=== PATIENT | female | born 1990 | race Caucasian/White ===

== ENCOUNTER 2018-11-29 13:03 | Emergency (ER) | payer MEDICAID, MEDICARE ==
[~2018-11-29] VITALS: Ht 170.2 cm; Wt 88.9 kg
[2018-11-29 13:05] VITALS: BP 116/77
[2018-11-29] MEDS ORDERED: DEXAMETHASONE 4 MG TABLET PO ONE (13:30)
[2018-11-29] MEDS ORDERED: DEXAMETHASONE 4 MG TABLET ONE (13:31)
== END 2018-11-29 14:01 | disposition home or self-care (01) ==
LOC: ED 13:27
DX: J02.8 Acute pharyngitis due to other specified organisms (principal); B97.89 Other viral agents as the cause of diseases classified elsewhere; J45.909 Unspecified asthma, uncomplicated; F17.210 Nicotine dependence, cigarettes, uncomplicated
CPT/HCPCS: 87081; 87880; 99283

== ENCOUNTER 2018-12-01 10:43 | Emergency (ER) | payer MEDICAID ==
[~2018-12-01] VITALS: Ht 170.2 cm; Wt 90.5 kg
[2018-12-01 10:48] VITALS: BP 115/82
--- NOTE | 2018-12-01 11:04 | NUR ---
PA TO BEDSIDE FOR ASSESSMENT AND TO DISCUSS UNFILLED PRESCRIPTIONS.
== END 2018-12-01 11:35 | disposition home or self-care (01) ==
LOC: ED 11:00
DX: B34.9 Viral infection, unspecified (principal); Z76.0 Encounter for issue of repeat prescription; F17.210 Nicotine dependence, cigarettes, uncomplicated
CPT/HCPCS: 99283